=== PATIENT | male | born 2000 | race African-American/Black ===

== ENCOUNTER 2023-07-23 12:30 | Emergency (ER) | payer OTHER ==
[2023-07-23 13:04] VITALS: TEMP 98.5
--- NOTE | 2023-07-23 13:16 | ED ---
General Adult HPI - General Chief complaint: Extremity Injury, Upper Stated complaint: Right Hand Injury Time Seen by Provider: 07/23/23 12:45 Source: patient, RN notes reviewed Mode of arrival: ambulatory Limitations: no limitations - History of Present Illness Initial comments: 23-year-old male presents to the emergency department for evaluation of right hand pain. Patient states that he was working with a nozzle at work which fell and hit him in the right hand. Patient reports pain over the third metacarpal. He states that this happened on . He does report wearing gloves at work. He reports some blistering to his fingers but he is not sure what this is from. He is up-to-date on tetanus vaccination. - Related Data Allergies Allergy/AdvReac Type Severity Reaction Status Date / Time No Known Allergies Allergy Verified 07/23/23 12:43 Review of Systems ROS Statement: Those systems with pertinent positive or pertinent negative responses have been documented in the HPI. ROS Other: All systems not noted in ROS Statement are negative. Past Medical History Past Medical History: No Reported History History of Any Multi-Drug Resistant Organisms: None Reported Past Surgical History: No Surgical Hx Reported Past Psychological History: No Psychological Hx Reported Smoking Status: Never smoker Past Alcohol Use History: Occasional Past Drug Use History: Marijuana General Exam Limitations: no limitations General appearance: alert, in no apparent distress Head exam: Present: atraumatic, normocephalic, normal inspection Eye exam: Present: normal appearance, PERRL, EOMI. Absent: scleral icterus, conjunctival injection, periorbital swelling Respiratory exam: Present: normal lung sounds bilaterally. Absent: respiratory distress, wheezes, rales, rhonchi, stridor Cardiovascular Exam: Present: regular rate, normal rhythm, normal heart sounds. Absent: systolic murmur, diastolic murmur, rubs, gallop, clicks Extremities exam: Present: full ROM, tenderness (Tenderness palpation over the distal right third metacarpal), normal capillary refill, other (Radial pulses 2+, healing blisters over the second third and fourth digits.) Neurological exam: Present: alert, oriented X3 Psychiatric exam: Present: normal affect, normal mood Skin exam: Present: warm, dry, normal color, other (Healing blisters over the second third and fourth digits). Absent: intact Course Vital Signs 07/23/23 07/23/23 12:40 13:59 Temperature 98.5 F Pulse Rate 88 84 Respiratory 16 18 Rate Blood Pressure 124/81 127/84 O2 Sat by Pulse 97 97 Oximetry Medical Decision Making - Medical Decision Making Was pt. sent in by a medical professional or institution (, PA, CELL TECHNICIAN, urgent care, hospital, or [facility]...) When possible be specific @ -No Did you speak to anyone other than the patient for history (EMS, parent, family, police, friend...)? What history was obtained from this source @ -No Did you review nursing and triage notes (agree or disagree)? Why? @ -I reviewed and agree with nursing and triage notes Were old charts reviewed (outside hosp., previous admission, EMS record, old EKG, old radiological studies, urgent care reports/EKG's, [facility] records)? Report findings @ -No old charts were reviewed Differential Diagnosis (chest pain, altered mental status, abdominal pain women, abdominal pain men, vaginal bleeding, weakness, fever, dyspnea, syncope, headache, dizziness, GI bleed, back pain, seizure, CVA, palpatations, mental h ealth, musculoskeletal)? @ -Differential Musculoskeletal Muscular strain, contusion, ligament sprain, fracture, arthritis, septic arthritis, bursitis, cellulitis, muscle spasm, nerve compression, DVT, arterial occlusion, herpes zoster, electrolyte abnormality, tumor.... This is not meant to be in all inclusive list EKG interpreted by me (3pts min.). @ -None X-rays interpreted by me (1pt min.). @ -X-ray of the right hand shows no acute fracture. CT interpreted by me (1pt min.). @ -None done U/S interpreted by me (1pt. min.). @ -None done What testing was considered but not performed or refused? (CT, X-rays, U/S, labs)? Why? @ -None What meds were considered but not given or refused? Why? @ -None Did you discuss the management of the patient with other professionals (professionals i.e. , [facility], CELL TECHNICIAN, lab, RT, psych nurse, child welfare social worker, fur examiner, teacher, police booking officer, employment evaluator/case manager)? Give summary @ -No Was smoking cessation discussed for >3mins.? @ -No Was critical care preformed (if so, how long)? @ -No Were there social determinants of health that impacted care today? How? (Homelessness, low income, unemployed, alcoholism, drug addiction, transportation, low edu. Level, literacy, decrease access to med. care, shelter, rehab)? @ -No Was there de-escalation of care discussed even if they declined (Discuss DNR or withdrawal of care, Hospice)? DNR status @ -No What co-morbidities impacted this encounter? (DM, HTN, Smoking, COPD, CAD, Cancer, CVA, ARF, Chemo, Hep., AIDS, mental health diagnosis, sleep apnea, morbid obesity)? @ -None Was patient admitted / discharged? Hospital course, mention meds given and route, prescriptions, significant lab abnormalities, going to OR and other pertinent info. @ -Discharge. Patient presented to the emergency department for evaluation of right hand injury from the nozzle at work. X-rays obtained which show no acute fracture. Patient does have blisters present on the right second through fourth digits. Normal range of motion to the fingers. These blisters appear to be healing. Patient given mupirocin ointment advised on utilization of this on the blisters. He is up-to-date on his tetanus vaccination. Patient will be discharged home in stable condition. He is requesting a work note for today. Undiagnosed new problem with uncertain prognosis? @ -No Drug Therapy requiring intensive monitoring for toxicity (Heparin, Nitro, Insulin, Cardizem)? @ -No Were any procedures done? @ -No Diagnosis/symptom? @ -Hand contusion Acute, or Chronic, or Acute on Chronic? @ -acute Uncomplicated (without systemic symptoms) or Complicated (systemic symptoms)? @ -uncomplicated Side effects of treatment? @ -No Exacerbation, Progression, or Severe Exacerbation? @ -No Poses a threat to life or bodily function? How? (Chest pain, [place], [place], pneumonia, PE, COPD, DKA, ARF, appy, cholecystitis, CVA, Diverticulitis, Homicidal, Suicidal, threat to staff... and all critical care pts) @ -No Disposition Clinical Impression: Blister of finger without infection, Hand pain Disposition: HOME SELF-CARE Condition: Stable Instructions (If sedation given, give patient instructions): Superficial Burn (ED), Hand Sprain (ED) Additional Instructions: Please follow up with your PCP. Return to the emergency department for new or worsening symptoms. Is patient prescribed a controlled substance at d/c from ED?: No Referrals: None,Stated [Primary Care Provider] - 1-2 days
[2023-07-23] MEDS: MUPIROCIN 2% OINT 22 GM TUBE TOPICAL STA (13:27)
--- NOTE | 2023-07-23 13:38 | XR ---
EXAMINATION TYPE: XR hand complete RT DATE OF EXAM: 07/23/2023 COMPARISON: None HISTORY: Pain TECHNIQUE: 3 view right hand FINDINGS: No acute fracture or dislocation is evident. Soft tissues are normal. Joint spaces are pres erved. Follow up exams can be performed 7-10 days. IMPRESSION: 1. No acute osseous abnormality right hand
[2023-07-23 14:05] VITALS: BP 127/84; PULSE 84; RESP 18
== END 2023-07-23 14:00 | disposition home or self-care (01) ==
LOC: EC 12:30
DX: S60.429A Blister (nonthermal) of unspecified finger, initial encounter (principal); F12.90 Cannabis use, unspecified, uncomplicated; W01.110A Fall on same level from slipping, tripping and stumbling with subsequent striking against sharp glass, initial encounter
CPT/HCPCS: 99283